=== PATIENT | male | born 1980 | race Caucasian/White ===

== ENCOUNTER → 2016-06-09 | Outpatient (CLI) | payer BC | END | disposition home or self-care (01) | LOC: MW.CHFP 07:40 | PROVIDERS: ATTEND Student in an Organized Health Care Education/Training Program | DX: E29.1 Testicular hypofunction (principal) | CPT/HCPCS: 36415; 84402; 84403 ==

== ENCOUNTER 2023-08-28 07:51 | Emergency (ER) | payer BC ==
[2023-08-28 09:39] VITALS: BP 117/73; PULSE 74
== END 2023-08-28 09:38 | disposition home or self-care (01) ==
LOC: MW.ED 07:51
DX: M25.522 Pain in left elbow (principal); Z75.8 Other problems related to medical facilities and other health care; X50.0XXA Overexertion from strenuous movement or load, initial encounter
CPT/HCPCS: 73070-26-LT; 73070-LT; 99283